=== PATIENT | female | born 1950 | race Caucasian/White ===

== ENCOUNTER 2017-09-22 08:50 | Day surgery (SDC) | payer MEDICARE, OTHER, SELFPAY ==
[2017-09-22] VITALS (8 sets, daily range): BP systolic 110–139; BP diastolic 75–93; PULSE 70–81; RESP 16; TEMP 36.7–37.3; O2SAT 92–95; BMI 36.0
[2017-09-22 09:18] LABS: Hematocrit 43.2 % (37-47); Hemoglobin 14.4 g/dl (12.0-15.0); Mean Corp Hgb Conc 33.3 g/gl (32-36); Mean Corpuscular Hgb 28.8 pg (27.0-32.0); Mean Corpuscular Volume 86.4 fL (81-99); Mean Platelet Vol. 10.8 fl (6.2-12.0); Platelet Count 258 K/mm3 (150-450); RBC Distribution Width CV 13.6 % (11.6-14.6); RBC Distribution Width SD 41.9 fl (35.1-43.9); White Blood Count 11.8 K/mm3 (4.4-11.0)
[2017-09-22 09:19] LABS: Scan Indicated on CBC? Y/N NO
[2017-09-22 09:42] LABS: Bedside Glucose 168 mg/dL (70-110)
--- NOTE | 2017-09-22 10:52 | DCINST_ITS ---
Discharge Diet: No Restrictions Discharge Activity: Return to Normal Activity, May Shower, May Take a Tub Bath - in 2 weeks. May shower in (days): 1 May resume sexual activity in: 2 weeks Call your doctor if your incision/area has: Sudden Increased Bleeding Call your doctor if you observe: Fever of 101 or Higher, Using more than one pad per hour - for 2 hrs in a row Allergies/Adverse Reactions: Allergies atorvastatin [From Lipitor] Adverse Reaction (Verified 09/01/17 13:58) MUSCLE CRAMPS codeine Adverse Reaction (Verified 09/01/17 13:58) Unknown tramadol [From Ultram] Adverse Reaction (Verified 09/01/17 13:58) Unknown Medications to take at Discharge Cholecalciferol (Vitamin D3) [Vitamin D3] 6,000 unit PO DAILY 09/01/17 Cinnamon Bark [Cinnamon] 2,000 mg PO DAILY 09/01/17 Dm Hb/Pseudoephed/Acetamin/Cp [[place] Plus-D Sinus-Cold] 1 each PO PRN PRN 09/01/17 Esomeprazole Mag Trihydrate [Nexium] 40 mg PO DAILY 09/01/17 Gabapentin [Gralise] 600 mg PO QHS 09/01/17 Hydrochlorothiazide [Hctz] 25 mg PO DAILY 09/01/17 Levothyroxine Sodium 125 mcg PO DAILY 09/01/17 Metformin HCl [Glucophage] 500 mg PO DAILY 09/01/17 [place]-3/Dha/Epa/Fish Oil [[place] 3 500 Softgel] 1 each PO LUNCH 09/01/17 Potassium Chloride [K-Tab ER] 20 meq PO DAILY 09/01/17 Pravastatin Sodium 20 mg PO QHS 09/01/17 Ibuprofen [Motrin] 600 mg PO Q8 PRN #20 tab 09/22/17 The following prescriptions were given: Ibuprofen [Motrin] 600 mg PO Q8 PRN #20 tab PRN Reason: Pain Primary Care Physician: Roseanna Frederick MD [Primary Care Provider] - Please Follow Up With: Rose Marie Kay MD - [phone] When: as needed. With Dr. Rodas's office, call for appointment
--- NOTE | 2017-09-22 10:56 | OP.PCM_ITS ---
Report of Operation Date of Procedure: 09/22/17 Pre-Operative Diagnosis: PMB and thickened endometrium Post-Operative Diagnosis: same Surgery/Procedure Performed:: Exam under anesthesia, attempted dilation of cervix Description of Surgical Findings:: stenotic flush cervix motion picture photographer: Eddie Morfin student Type of Anesthesia:: MAC/Supplemental/Local Special Medications: 1% lidocaine locally Specimen's removed: none Drains: none Estimated Blood Loss (mL): 10cc Fluids Replaced: 600ccLR Description of Procedure: The patient was taken to the operating room where she was prepped and draped in normal sterile fashion in dorsal lithotomy position. Her cervix was high and flushed with the vagina but a dimple could be palpated. The anterior lip was grasped with a single-tooth tenaculum and I attempted to dilate it. Several radiographs with the tenaculum to get a better angle were made. When I was finally able to penetrate the external cervical loss there was no significant resistance. This was done with a small dilator. I then attempted to reposition the dilator and see if I could enter the endometrial cavity but I went through the same defect. This was in the midline posterior uterus or cervix. Cervix was observed and there is no active bleeding. The instruments removed from the vagina. The vaginal sweep was completed by me. Sponge and needle counts were correct. The patient was taken the recovery room. I will refer her to a hysteroscopic specialist for further evaluation. Grafts/Implants Used: none - Complications none - Admit VTE Documentation VTE Present on Admission: No VTE Mechan Device Prophylaxis: SCD's VTE Pharm Prophylaxis ordered?: No Reason prophylaxis not ordered:: Procedure Not Indicated
== END 2017-09-22 12:13 | disposition home or self-care (01) ==
LOC: SDC 08:52 → AC 08:54
PROVIDERS: Anesthesiology; Family Provider Internal Medicine; PCP Internal Medicine; Visit Provider Obstetrics & Gynecology
PROC: 0UDB8ZZ Extraction of Endometrium, Via Natural or Artificial Opening Endoscopic (ICD-10-PCS; CPT 58558; principal; 2017-09-22 10:10)
DX: N95.0 Postmenopausal bleeding (principal); R93.8 Abnormal findings on diagnostic imaging of other specified body structures; E11.9 Type 2 diabetes mellitus without complications; I10 Essential (primary) hypertension; E78.00 Pure hypercholesterolemia, unspecified; E03.9 Hypothyroidism, unspecified; E55.9 Vitamin D deficiency, unspecified; K21.9 Gastro-esophageal reflux disease without esophagitis; Z78.0 Asymptomatic menopausal state; E66.9 Obesity, unspecified; Z68.36 Body mass index [BMI] 36.0-36.9, adult; Z79.84 Long term (current) use of oral hypoglycemic drugs; Z79.899 Other long term (current) drug therapy
CPT/HCPCS: 00952; 58558; 36415; 82962; 85027; J7120; J2405

== ENCOUNTER 2017-12-10 00:44 | Emergency (ER) | payer MEDICARE, OTHER, SELFPAY ==
--- NOTE | 2017-12-10 00:02 | CT_ITS ---
STUDY: CT BRAIN WITHOUT CONTRAST REASON FOR EXAM: Female, 67 years old. Headache. Left frontal and orbital pain. No known injury. RADIATION DOSAGE (If Supplied By Facility): CTDIvol = ( 44.99 ) mGy, DLP = ( 745.49 ) mGycm TECHNIQUE: Transaxial CT imaging of the brain was performed without administration of intravenous contrast material. Individualized dose optimization techniques were used for this CT. COMPARISON: None. FINDINGS: Normal soft tissue structures. Normal calvarium. Normal size ventricles and extra-axial spaces for the patient's age. Normal white matter tracts of the cerebral hemispheres. Normal basal ganglia and thalami. Normal brainstem. Normal cerebellum. There is no intracranial hemorrhage. There are no findings of an acute ischemic infarction. Normal visualized paranasal sinuses. Left orbit is normal. CT/Brain/Head without Contrast IMPRESSION: Normal unenhanced CT scan of the brain. Electronically Signed: Jv Pike MD at 1:03 EDT , Service support ,
--- NOTE | 2017-12-10 01:15 | ED.DCSUM_ITS ---
- ER Visit Summary Date of Service: 12/10/17 Chief Complaint: [] Headache History of Present Illness: The patient is a 67 F pinning of headache since today at 3 PM. Came on suddenly continuous similar to prior. Worsened by light. Took some Tylenol Excedrin with good relief of symptoms. It is mild at this time. She has had remote migraines. Physical Examination: [] Vital signs reviewed General: Well-nourished well-developed Head: Normocephalic atraumatic Eyes: Pupils equal round and reactive to light extraocular movements intact ENT: TMs clear no hemotympanum no trauma Neck: Nontender full range of motion Cardiovascular: Regular rate rhythm no murmurs normal S1-S2 Respiratory: No distress clear to auscultation bilaterally chest nontender Abdomen: Soft nontender nondistended normal bowel sounds no masses Back: Nontender no CVA tenderness Extremities: Nontender active range of motion ?4 extremities no trauma Skin: Normal color no trauma Neuro alert oriented cranial nerves II through XII intact normal strength sensation reflexes Test Results: [] Emergency Department Course and Treatment: [] CT head obtained and negative. Given dose of Toradol. Resting comfortably would like to be discharged. I think this is reasonable and likely tension headache. Could be migraine. Will follow-up as an outpatient. Do not think she has had a subarachnoid hemorrhage Treatment Plan: [] Disposition: [] Impression: [] Left-sided frontal headache This note was generated with [employer] dictation software. It may contain incorrect words, spelling, and punctuation that were not noted in review of the chart prior to signing ED Disposition - Plan for ED Patient: Referrals: Roseanna Frederick MD [Primary Care Provider] -
== END 2017-12-10 01:50 | disposition home or self-care (01) ==
LOC: ED 00:49
PROVIDERS: Emergency Provider Emergency Medicine; Family Provider Internal Medicine; PCP Internal Medicine
DX: R51 Headache (principal); Z79.899 Other long term (current) drug therapy; Z79.84 Long term (current) use of oral hypoglycemic drugs; E11.9 Type 2 diabetes mellitus without complications; I10 Essential (primary) hypertension; E78.00 Pure hypercholesterolemia, unspecified; K21.9 Gastro-esophageal reflux disease without esophagitis
CPT/HCPCS: 70450; 96372; 99282

== ENCOUNTER 2019-07-20 22:33 | Observation (INO) | payer MEDICARE, OTHER, SELFPAY ==
[2017-09-22 09:15] VITALS: BMI 36.0
[2019-07-20 22:33] VITALS: BP 213/84; PULSE 79; RESP 18; TEMP 36.6; O2SAT 98; BMI 35.9
--- NOTE | 2019-07-20 23:10 | CT_ITS ---
HISTORY: TINGLING UPPER LIP AND CHIN X 1 DAY ON/OFF, HTN-CONTROLLED WITH MEDS EXAMINATION: CT Head or Brain W/O Contrast Injection TECHNIQUE: Multiple axial images were obtained of the head without intravenous contrast. A radiation dose optimization technique was used for this scan. IV Contrast dosage and agent: None. COMPARISON: 12/10/2017 FINDINGS: No significant change. Normal ventricles. No significant white matter disease. No intracranial mass, hemorrhage, or acute parenchymal abnormality. Posterior fossa structures are Hamzah. No suspicious extra-axial fluid collection. Hyperostosis frontalis interna. As visualized, mastoids and paranasal sinuses appear clear. CT/Brain/Head without Contrast IMPRESSION: Stable exam. Normal CT brain for age. Individualized dose optimization techniques were used for this CT. at [id number] Reported and signed by: Kush Atkins MD Electronically Signed: Kush Atkins, at 23:56 EST Tel , Service support ,
--- NOTE | 2019-07-20 23:10 | EKG12_ITS ---
Test Reason : DYSRYTHMIA Blood Pressure : / mmHG Vent. Rate : 073 BPM Atrial Rate : 073 BPM P-R Int : 166 ms QRS Dur : 090 ms QT Int : 408 ms P-R-T Axes : 066 064 044 degrees QTc Int : 449 ms Normal sinus rhythm Normal ECG Confirmed by GHULAM DELEON, CHANDRIKA ([id number]), art editor KIRK PONCE ([id number]) on 07/23/2019 11:40:29 AM Referred By: Pravin Adams Confirmed By:CHANDRIKA PARMAR MD
--- NOTE | 2019-07-20 23:10 | RAD_ITS ---
HISTORY: Facial paresthesia that started yesterday EXAMINATION/TECHNIQUE: XR Chest 1 View: Portable COMPARISON: None FINDINGS: Mild elevation of the right hemidiaphragm compatible with chronic change. Shallow inspiration. Normal heart size. No vascular congestion, pleural effusion, or pulmonary infiltration. No pneumothorax. The bony thorax appears intact. RAD/Chest 1 View IMPRESSION: No acute cardiopulmonary disease. at 0029 Reported and signed by: Kush Atkins MD Electronically Signed: Kush Atkins, at 0:28 EST Tel , Service support ,
--- NOTE | 2019-07-20 23:12 | ED.DCSUM_ITS ---
History of Present Illness Chief Complaint: Numb/Ting Informant: Patient Onset: Yesterday Context: Sudden Onset - relatively, while sitting and watching TV Quality and Location: Left Face Parasthesia - around mouth, more on left Onset: see above Current Severity: Mild Maximum Severity: Mild Worsened by: nothing Relieved by: nothing Associated Symptoms: Negative for: Headache, Nausea, Vomiting, Chest Pain Narrative: States her face feels flushed and hot on both sides. No other focal neurologic symptoms. No symptoms in her extremities, trouble speaking or understanding others, or trouble ambulating. No chest discomfort or headache. No malaise or fevers. States she recently got over an earache, which was treated as an infection with antibiotics and that is better now, and recently had homeopathic medication injections into both knees, 1 of them was 2 days ago and the other was 4 days ago, a medication called Traumeel. She checked her blood pressure this evening and it was 118 systolic. She often has elevated pressures when going to the doctor's office. She is on antihypertensives losartan and HCTZ, and states she has been compliant with her medications and had no recent changes or additions/deletions. - Past Medical History (1) HTN (hypertension) Status: Chronic (2) Arthritis Status: Chronic (3) Diabetes mellitus, type 2 Status: Chronic Past Medical History - Allergies and Home Meds Allergies/Adverse Reactions: Allergies amoxicillin [From Augmentin] Adverse Reaction (Verified 07/21/19 03:03) Other atorvastatin [From Lipitor] Adverse Reaction (Verified 07/20/19 22:35) MUSCLE CRAMPS clavulanic acid [From Augmentin] Adverse Reaction (Verified 07/21/19 03:03) Other codeine Adverse Reaction (Verified 07/20/19 22:35) Unknown tramadol [From Ultram] Adverse Reaction (Verified 07/20/19 22:35) Unknown Past Medical History: - - no antiplatelet or anticoagulant medications Lives: Alone Smoking Status: Never smoker Drugs: None - Family History Maternal Family History: Reports: Diabetes, Heart Disease Paternal Family History: Reports: - - Her from motor vehicle accident 44 years. She does not know her paternal medical history. Review of Systems General: Denies: Chills, Fever, Sweats Eyes: Denies: Visual changes - bilaterally, Diplopia ENT: Denies: Rhinorrhea, Sore throat Cardiovascular: Denies: Chest pain, Palpitations Respiratory: Denies: Dyspnea, Cough, Dyspnea on exertion Gastrointestinal: Denies: Abdominal pain, Nausea, Vomiting, Diarrhea, Melena, Hematochezia Genitourinary: Denies: Dysuria, Hematuria, Frequency Musculoskeletal: Reports: Extremity Pain - both knees, left worse; nonacute. D enies: Neck pain, Back pain, Swelling Skin: Denies: Rash, Abscess, Wounds Neurological: Reports: Parasthesia - tingling. Denies: Headache, Weakness STROKE Vital Signs/Narrative: Vital Signs Temp Pulse Resp BP Pulse Ox 07/20/19 22:33 97.9 F 79 18 213/84 H 98 Inital Vital Signs reviewed: Yes - NIHSS Initial 1a Level of Consciousness: 0 1b LOC Questions (Score 2 if aphasic/stupor): 0 1c LOC Commands (Only score 1st attempt): 0 2 Best Gaze (If aphasic, use reflexive mvmts.): 0 3 Visual: 0 4 Facial Palsy: 0 5 Motor Arm Right (UN = amputation/fusion): 0 5 Motor Arm Left: 0 6 Motor Leg Right: 0 6 Motor Leg Left: 0 7 Limb ataxia (Only + if out of proportion): 0 8 Sensory (Aphasia/stupor=0 or 1, coma=2): 1 9 Best Language: 0 10 Dysarthria (mute, coma=2, intubated=UN): 0 11 Extinction and Inattention (only scored if +): 0 Total Score: 1 General: Well nourished, Well developed Head: Normocephalic, Atraumatic Eyes: Perrl, EOMI ENT: Moist mucous membranes, No rhinorrhea Neck: Supple, Nontender, No lymphadenopathy, - - no carotid bruits Cardiovascular: Regular rate, Regular rhythm, No murmurs, Normal S1, Normal S2. Negative for: Tachycardia Respiratory: No distress, CTA bilaterally, Chest nontender Abdomen: Soft, Nontender, Nondistended, Normal bowel sounds Back: Nontender, Normal Inspection. Negative for: CVA tenderness Extremities: Nontender, No edema. Negative for: Calf Tenderness Skin: Normal color, No rash, No Trauma Neurological: Alert, Oriented x3, Cranial nerves II-XII grossly intact, Normal Strength, Normal DTR, Normal Gait, Parasthesia - left perioral only. Negative for: Left side facial droop, Right side facial droop Psychological: Normal affect, Normal Mood Diagnostic/Tx/Re-eval Impressions Brain CT 07/20/19 23:10 IMPRESSION: Stable exam. Normal CT brain for age. Individualized dose optimization techniques were used for this CT. at 2357 Reported and signed by: Kush Atkins MD Electronically Signed: Kush Atkins, at 23:56 EST Tel , Service support , Chest X-Ray 07/20/19 23:10 IMPRESSION: No acute cardiopulmonary disease. at 0029 Reported and signed by: Kush Atkins MD Electronically Signed: Kush Atkins, at 0:28 EST Tel , Service support , 07/20/19 23:10 Brain/Head without Contrast [CT] Stat Chest 1 View [RAD] Stat Laboratory Results 07/20/19 07/20/19 07/20/19 23:10 23:10 23:10 WBC 11.3 H RBC 4.77 Hgb 13.4 Hct 40.9 MCV 85.7 MCH 28.1 MCHC 32.8 RDW Std Deviation 41.9 RDW Coeff of [place] 13.4 Plt Count 258 MPV 10.2 Immature Gran % (Auto) 0.300 Neut % (Auto) 55.5 Lymph % (Auto) 34.0 [place] % (Auto) 7.1 Eos % (Auto) 2.5 Baso % (Auto) 0.6 Absolute Neuts (auto) 6.3 Absolute Lymphs (auto) 3.84 Nucleated RBC % 0 PT 12.6 INR 1.0 APTT 36.1 Sodium 139 Potassium 3.5 Chloride 103 Carbon Dioxide 29.0 Anion Gap 7 BUN 10 Creatinine 0.74 Estim Creat Clear Calc 41.40 Est GFR (MDRD) Af Amer 99 Est GFR (MDRD) Non-Af 82 BUN/Creatinine Ratio 13.5 Glucose 127 H Calcium 9.4 Troponin I < 0.015 - Rhythm Strip Rhythm Strip: Sinus Rhythm Rate: 75 Ectopy: None - EKG Initial EKG Interpretation: Sinus Rhythm, No Acute Injury Pattern - normal EKG - Medical Decision Making Stroke Team Activated: No - due to timing IV Alteplase (t-PA) Administered: No - due to timing Work-up is unremarkable the patient's blood pressure continues to be severely elevated in the 180-190 range. My concern is that she has had a small stroke. She is outside of the window for any intervention or IV TPA due to timing, but her symptoms are persistent and with her high blood pressures, certainly small stroke is possible although this is an unusual pattern. She needs an MRI. If she has an MRI in the morning, that is negative she can probably be discharged home without an emergent neurology consultation. The plan is for admission for that purpose and further monitoring. ED Disposition - Plan for ED Patient: Disposition: Acute Care Hospital [facility] Diagnosis: Numbness and tingling of left side of face
[2019-07-20 23:29] LABS: Absolute Lymphocyte Count 3.84 X10^3/uL (0.83-4.51); Absolute Neutrophil Count 6.3 X10^3/uL (2.0-7.7); Basophil# 0.07 X10^3/uL; Basophil% 0.6 % (0-1); Eosinophil# 0.28 X10^3/uL; Eosinophils% 2.5 % (0-5); Hematocrit 40.9 % (37-47); Hemoglobin 13.4 g/dL (12.0-15.0); Lymphocyte # 3.84 X10^3/ul (4.0); Mean Corp Hgb Conc 32.8 g/dL (32-36); Mean Corpuscular Hgb 28.1 pg (27.0-32.0); Mean Corpuscular Volume 85.7 fL (81-99); Mean Platelet Vol. 10.2 fl (6.2-12.0); Monocyte% 7.1 % (0-10); NRBC Flagged by Analyzer 0 % (0-5); Neutrophil # 6.28 X10^3/uL (2.7-7.7); Neutrophil % 55.5 % (47-70); Platelet Count 258 K/mm3 (150-450); RBC Distribution Width CV 13.4 % (11.6-14.6); RBC Distribution Width SD 41.9 fl (35.1-43.9); Red Blood Count 4.77 M/mm3 (4.2-5.4); White Blood Count 11.3 K/mm3 (4.4-11.0)
[2019-07-20 23:40] VITALS: BP 183/82; PULSE 81; RESP 16
[2019-07-20 23:46] LABS: Anion Gap 7 (5-15); BUN 10 mg/dL (7-18); BUN/Creat Ratio 13.5 RATIO (10-20); Calcium,Total 9.4 mg/dL (8.5-10.1); Chloride 103 mmol/L (98-107); Creatinine, Serum 0.74 mg/dL (0.55-1.02); EST Glomerular Filtration Rate 82 mL/min (>60); Est Glom Filt Rate - Afr Amer 99 mL/min (>60); Glucose 127 mg/dL (74-106); Potassium 3.5 mmol/L (3.5-5.1); Sodium Level 139 mmol/L (136-145)
[2019-07-20 23:47] LABS: Prothrombin Time (Protime)PT. 12.6 SECONDS (11.7-14.9)
[2019-07-20 23:49] LABS: Partial Thromboplast Time 36.1 Seconds (24.1-36.2)
[2019-07-21] VITALS (10 sets, daily range): BP systolic 141–192; BP diastolic 71–83; PULSE 77–96; RESP 16–17; TEMP 36.6–36.9; O2SAT 95–97; BMI 35.7; BMI 35.8
--- NOTE | 2019-07-21 03:20 | NURSING ---
Patient reports tingling to left upper lip and left chin.
--- NOTE | 2019-07-21 03:23 | PCM.HP.STD ---
Problem List (1) Tingling of face Status: Acute (2) HTN (hypertension) Status: Chronic (3) Arthritis Status: Chronic (4) Diabetes mellitus, type 2 Status: Chronic History of Present Illness Date of Admission: 07/21/19 Chief Complaint: Tingling sensation The patient is a 68 year old F with a significant history of hypertension; diabetes and arthritis who presented to emergency department with a tingling sensation around her mouth. Her Symptoms started about 5 and half hours prior to presentation. Also her tingling sensation goes down to her chin. She denies any change in speech or any focal weakness. Past Medical History Past Medical History (Chronic Problems): Chronic Problems HTN (hypertension) (Chronic) Arthritis (Chronic) Diabetes mellitus, type 2 (Chronic) Allergies amoxicillin [From Augmentin] Adverse Reaction (Verified 07/21/19 03:03) Other atorvastatin [From Lipitor] Adverse Reaction (Verified 07/20/19 22:35) MUSCLE CRAMPS clavulanic acid [From Augmentin] Adverse Reaction (Verified 07/21/19 03:03) Other codeine Adverse Reaction (Verified 07/20/19 22:35) Unknown tramadol [From Ultram] Adverse Reaction (Verified 07/20/19 22:35) Unknown Home Medications: Ambulatory Orders Medication Instructions Recorded Cholecalciferol (Vitamin D3) 4,000 unit PO DINNER 09/01/17 [Vitamin D3] Cinnamon Bark [Cinnamon] 2,000 mg PO DINNER 09/01/17 Esomeprazole Mag Trihydrate 40 mg PO DAILY 09/01/17 [Nexium] Hydrochlorothiazide [Hctz] 12.5 mg PO DAILY 09/01/17 Levothyroxine Sodium 125 mcg PO DAILY 09/01/17 Metformin HCl [Glucophage] 1,000 mg PO DAILY 09/01/17 [place]-3/Dha/Epa/Fish Oil [[place] 3 2 each PO DINNER 09/01/17 500 Softgel] Potassium Chloride [K-Tab ER] 20 meq PO DAILY 09/01/17 Pravastatin Sodium 20 mg PO QHS 09/01/17 Ibuprofen [Motrin] 600 mg PO Q8 07/20/19 Tobramycin/Lotepred Etab [Zylet 1 drp LEFT EYE TID 07/20/19 Eye Drops] Carboxymethylcellulos/Glycerin 2 drp EACH EYE 4X/DAY 07/21/19 [Refresh Optive Eye Drops] Surgical History: cataract, hysterectomy - Complete hysterectomy for endometrial cancer, - - Foot surgery Lives: Alone Smoking Status: Never smoker Drugs: None - *Family History Maternal History Items: Diabetes, Heart Disease Paternal History Items: - - Her from motor vehicle accident 44 years. She does not know her paternal medical history. Review of Systems Constitutional: Denies: Chills, Fever, Weight Change HEENT: Denies: Head Aches, Sinus Congestion, Sinus Drainage Cardiovascular: Denies: Chest Pain, Palpitations Respiratory: Denies: Cough, Shortness of breath at rest, Sputum production Gastrointestinal: Denies: Abdominal Pain, Nausea, Vomiting Genitourinary: Denies: Dysuria Musculoskeletal: Denies: Joint Pain, Joint Tenderness Skin: Denies: Rash, Wounds Neurological: Reports: Tingling. Denies: Focal weakness Psychiatric: Denies: Anxiety, Depression, Homicidal Ideations, Suicidal Ideations Hematologic/ Lymphatic: Denies: Easy Bruising, Easy Bleeding VTE Information - Inpt Only VTE Present on Admission: No VTE Mechan Device Prophylaxis: None VTE Pharm Prophylaxis ordered?: Yes Patient Problems: Active and Suspected Problems Numbness and tingling of left side of face (Acute) Tingling of face (Acute) - Physical Exam Vitals/I&O's: Vital Signs Temp Pulse Resp BP Pulse Ox 98.4 F 77 16 166/76 H 97 07/21/19 02:46 07/21/19 02:46 07/21/19 02:46 07/21/19 02:47 07/21/19 02:46 Oxygen Delivery Method Room Air Weight: 88.7 kg Body Mass Index (BMI) 35.7 General: Alert, Oriented x3, Cooperative HEENT: Atraumatic, PERRLA, EOMI, Normocephalic Neck: Supple, No JVD, Negative Carotid Bruits Lungs: Clear to auscultation, Normal air movement Cardiovascular: Regular rate, No murmurs Abdomen: Bowel Sounds Present, Soft, Non Tender Extremities: No edema, Capillary Refill Less than 3 Seconds Skin: No rashes, No breakdown Musculoskeletal: No Tenderness to Palpation of Joints or Extremities Neurological: Cranial nerves II-XII grossly intact, Deep Tendon Reflexes 2+/4 and Symmetrical, Muscle tone normal, Coordination normal Psych/Mental Status: Normal Affect, Appropriate Laboratory Results 07/20/19 23:10: WBC 11.3 H, RBC 4.77, Hgb 13.4, Hct 40.9, MCV 85.7, MCH 28.1, MCHC 32.8, RDW Std Deviation 41.9, RDW Coeff of [place] 13.4, Plt Count 258, MPV 10.2, Immature Gran % (Auto) 0.300, Neut % (Auto) 55.5, Lymph % (Auto) 34.0, [place] % (Auto) 7.1, Eos % (Auto) 2.5, Baso % (Auto) 0.6, Absolute Neuts (auto) 6.3, Absolute Lymphs (auto) 3.84, Nucleated RBC % 0 07/20/19 23:10: PT 12.6, INR 1.0, APTT 36.1 07/20/19 23:10: Sodium 139, Potassium 3.5, Chloride 103, Carbon Dioxide 29.0, Anion Gap 7, BUN 10, Creatinine 0.74, Estim Creat Clear Calc 41.40, Est GFR (MDRD) Af Amer 99, Est GFR (MDRD) Non-Af 82, BUN/Creatinine Ratio 13.5, Glucose 127 H, Calcium 9.4, Troponin I < 0.015 Current Medications Sodium Chloride () 250 mls @ 15 mls/hr IV .[id number] PRN PRN Reason: Saline Flush Sodium Chloride () 10 - 40 ml IV UD PRN PRN Reason: SALINE FLUSH Assessment/Plan All Active Problems Numbness and tingling of left side of face (Acute) Tingling of face (Acute) The patient is a 68 year old F with a significant history of hypertension; diabetes and arthritis who presented to emergency department with manisha-oral tingling that goes down to her chin and found to have severely elevated blood pressure consistent with likely TIA/stroke. TIA/stroke CT of the head was unremarkable. -Check Lipid level Physical therapy and occupational therapy evaluation. N.p.o. until bedside swallow eval. Daily aspirin. Patient is allergic to atorvastatin. She takes pravastatin at home. We will continue patient on pravastatin. -Blood glucose was in the normal range on presentation. Permissive hypertension. Control blood pressure with labetalol for systolic blood pressure of more than 220 or diastolic blood pressure of more than 120. MRI/MRA of head; brain; and neck. Echocardiogram ordered. Hypertension On presentation her blood pressure was severely elevated. Permissive hypertension as above. Hold home hydrochlorothiazide. Diabetes mellitus On presentation her blood glucose was within goal. Will discontinue metformin since it is too early in her admission. Accu-Chek QA [facility] with correction scale insulin ordered. Hypokalemia On presentation her potassium was low normal at 3.5. On home potassium supplementation 20 mEq daily; not ordered since home hydrochlorothiazide has been held at this time. Potassium chloride 40 mg x 1 ordered. Hypothyroidism Synthroid continued DVT prophylaxis Subcutaneous Lovenox Code Visit OBSV E&M: 31611 Initial observation care L3
--- NOTE | 2019-07-21 03:27 | ECHOD_ITS ---
Version 2 Reason For Study: TIA/CVA Procedure This was a 2D Doppler, Color Flow transthoracic echocardiogram. Exam performed portable in patient room. Left Ventricle Normal LV size. Left ventricular systolic function is normal. The estimated ejection fraction is 65 %. Stage 1 diastolic dysfunction. No regional wall motion abnormalities noted. Right Ventricle Normal RV size. Normal systolic function. Atria Normal left atrium. Normal right atrium. Bubble contrast study negative for right to left interatrial shunt. Mitral Valve Normal mitral valve. Tricuspid Valve Normal tricuspid valve. Mild (1+) tricuspid valve insufficiency. Pulmonary artery systolic pressure is 37 mmHg. Aortic Valve Normal aortic valve. Trisinus/trileaflet aortic valve. Pulmonic Valve Normal pulmonic valve. Great Vessels Normal aortic root. The pulmonary artery is normal size. Normal inferior vena cava. Pericardium/Pleural No pericardial effusion. Medication Performed a rapid injection of agitated mix of 9 cc saline and 1cc air to assess for atrial septal defect. MMode/2D Measurements & Calculations LVIDd: 4.0 cm IVSd: 1.4 cm Ao root diam: 2.5 cm LVIDs: 2.3 cm LVPWd: 0.91 cm RVDd: 2.5 cm FS: 43.2 % LAV(MOD-bp): 16.8 ml LA A4 area: 7.6 cm2 LA dimension(2D): 3.3 cm LAV(MOD-bp) Indexed: 8.9 ml/m2 LAV(MOD-sp2): 25.5 ml LAV(MOD-sp4): 11.3 ml RA A4 area: 11.0 cm2 Doppler Measurements & Calculations MV E max trey: 66.4 cm/sec Lat Peak E' Trey: 6.0 cm/sec Med Peak E' Trey: 5.6 cm/sec MV A max trey: 89.3 cm/sec E/E' lat: 11.1 E/E' med: 12.0 MV E/A: 0.74 Ao V2 max: 155.8 cm/sec LV V1 max: 134.9 cm/sec PA V2 max: 90.6 cm/sec Ao max P.7 mmHg LV V1 max P.3 mmHg Ao V2 mean: 113.9 cm/sec Ao mean P.6 mmHg Ao V2 VTI: 33.6 cm TR max trey: 287.5 cm/sec TR max P.1 mmHg Interpretation Summary Normal LV size. Left ventricular systolic function is normal. The estimated ejection fraction is 65 %. Stage 1 diastolic dysfunction. Pulmonary artery systolic pressure is 37 mmHg. Bubble contrast study negative for right to left interatrial shunt. Ordering Physician: Pravin Adams Referring Physician: Roseanna Frederick Performed By: Sagrario Gómez, LAILA, RVT
--- NOTE | 2019-07-21 03:27 | MRI_ITS ---
STUDY: MRA NECK WITH AND WITHOUT CONTRAST REASON FOR EXAM: Female, 68 years old. Tingling in mouth and chin since yesterday. TECHNIQUE: 3-D lnvj-lg-lxxkvk (TOF) imaging was performed in an 1.5 T MRI scanner. IV Dotarem 18 was administered for the contrast enhanced images. COMPARISON: None. FINDINGS: RIGHT CAROTID ARTERIES: Normal right common carotid artery (CCA). Mild stenosis at the origin of the right internal carotid bulb. Widely patent right proximal internal carotid artery. Normal visualized cervical portion of the right internal carotid artery. Normal origin of the right external carotid artery (ECA). LEFT CAROTID ARTERIES: Normal left common carotid artery (CCA). Normal left internal carotid bulb. Normal origin of the left internal carotid (ICA) artery without a hemodynamically significant stenosis. Normal visualized cervical portion of the left internal carotid artery. Normal origin of the left external carotid artery (ECA). VERTEBRAL ARTERIES: Normal antegrade flow within the bilateral vertebral artery without a hemodynamically significant stenosis. They are codominant. AORTIC ARCH: Widely patent aortic arch and origins of the great vessels. MRI/MRA Neck WITH and W/O Contrast IMPRESSION: 1. Less than 20% stenosis of the origin of the right internal carotid artery bulb. The remainder of the right internal carotid artery is widely patent. 2. Widely patent bilateral common carotid arteries, left common carotid bifurcation, left internal and external carotid arteries. 3. Widely patent aortic arch and origins of the great vessels. 4. Widely patent bilateral codominant vertebral arteries. Electronically Signed: Trung Mascorro MD at 13:27 EST , Service support ,
--- NOTE | 2019-07-21 03:27 | MRI_ITS ---
STUDY: MRA OF THE HEAD WITHOUT CONTRAST REASON FOR EXAM: Female, 68 years old. Tingling in mouth and chin since yesterday. TECHNIQUE: 3-D wegi-nk-bxyeqz (TOF) imaging was performed with MIPs. The study was performed unenhanced. COMPARISON: None. FINDINGS: Normal bilateral petrous carotid arteries. Normal right cavernous carotid artery with a normal supraclinoid bifurcation. Normal left cavernous carotid artery with a normal supraclinoid bifurcation. Normal right A1 segment of the anterior cerebral artery. Normal left A1 segment of the anterior cerebral artery. Normal intact anterior communicating artery (ACOM). Normal bilateral A2 segments of the anterior cerebral arteries. Normal right M1 and M2 segments of the middle cerebral arteries, with a normal M1 bifurcation. Normal left M1 and M2 segments of the middle cerebral arteries, with a normal M1 bifurcation. No visible right posterior communicating artery (PCOM). Normal left posterior communicating artery (PCOM). Normal bilateral vertebral arteries. Mild tapered narrowing in the distal half of the basilar artery with a normal basilar bifurcation. The visualized bilateral superior cerebellar (SCA) arteries are normal. Normal bilateral P1, P2 and visualized P3 segments of the posterior cerebral arteries. There is no demonstrated aneurysm of the [place]. There is no major vessel occlusion or hemodynamically significant stenosis. MRI/MRA Head ONLY without Contrast IMPRESSION: 1. Mild tapered narrowing in the distal half of the basilar artery. 2. No significant vaso-occlusive disease of the anterior and posterior intracranial circulation. Electronically Signed: Trung Mascorro MD at 13:21 EST , Service support ,
--- NOTE | 2019-07-21 03:27 | MRI_ITS ---
STUDY: MRI BRAIN WITHOUT CONTRAST REASON FOR EXAM: Female, 68 years old. Tingling in mouth and chin since yesterday. TECHNIQUE: Standardized multiplanar fat and water weighted pulse sequences were obtained. COMPARISON: CT head without contrast 07/20/2019. FINDINGS: No restricted diffusion to suspect acute or subacute ischemic infarct. No midline shift and no mass effects. Normal size of the ventricles and extra-axial spaces for the patient's age. Normal white matter tracts of the supratentorial brain. Prominent perivascular space in the region of the left anterior commissure. Normal bilateral basal ganglia. Normal thalami. There is no extra-axial fluid accumulation. Normal flow voids within the major intracranial circulation suggesting patency by spin echo criteria. Normal sella turcica, pituitary gland, infundibular stalk, optic chiasm and hypothalamus. Normal tectal plate and pineal gland. Normal midbrain, trice and medulla. Normal cerebellum. Normal basal cisterns. Normal bilateral temporal bones. Normal bilateral internal auditory canals. No demonstrated orbital abnormality, within the constraints of a routine brain study. Normal visualized paranasal sinuses. Normal calvarium and skull base. Normal visualized soft tissue structures. Normal visualized upper cervical spine. MRI/Brain without Contrast IMPRESSION: Normal unenhanced MRI of the brain. Electronically Signed: Trung Mascorro MD at 13:23 EST , Service support ,
[2019-07-21] MEDS: Levothyroxine 125 MCG Tablet PO (06:32)
[2019-07-21] MEDS: Ibuprofen 600 MG Tablet PO (06:33)
[2019-07-21] MEDS: Insulin Lispro 100 UNIT/ML INSULN.PEN SC ×2 (06:45→11:53)
[2019-07-21 06:46] LABS: Cholesterol 192 mg/dL (200); High Density Lipoprotein 37 mg/dL; Triglycerides 176 mg/dL; Very Low Density Lipoprotein 35 mg/dL (5-40)
[2019-07-21 06:56] LABS: Bedside Glucose 152 mg/dL (70-110)
[2019-07-21] MEDS: Aspirin 81 MG TAB.CHEW PO (09:32)
[2019-07-21] MEDS: Pantoprazole Sodium 40 MG Tablet PO (09:32)
[2019-07-21] MEDS: Enoxaparin 40 MG/0.4 ML Syringe SC (09:32)
[2019-07-21 12:01] LABS: Bedside Glucose 154 mg/dL (70-110)
--- NOTE | 2019-07-21 13:38 | PCM.DC ---
- Discharge Diagnoses Current Active Problems: Current Active and Chronic Problems Numbness and tingling of left side of face (Acute) Tingling of face (Acute) You will use the following diet at home:: Cardiac Your food should be the consistency of: Regular Your liquids should be the consistency of: Regular/Thin Discharge Activity: Return to Normal Activity Weight Bearing Status: Weight bearing as tolerated Call your doctor if you observe: Numbness or Tingling, Shortness of breath, Dizziness Instructions: What Is a TIA?, Transient Ischemic Attack (TIA) Additional Instructions: to have 30 day event monitor set up on Tuesday07/23/19 Allergies/Adverse Reactions: Allergies amoxicillin [From Augmentin] Adverse Reaction (Verified 07/21/19 03:03) Other atorvastatin [From Lipitor] Adverse Reaction (Verified 07/20/19 22:35) MUSCLE CRAMPS clavulanic acid [From Augmentin] Adverse Reaction (Verified 07/21/19 03:03) Other codeine Adverse Reaction (Verified 07/20/19 22:35) Unknown tramadol [From Ultram] Adverse Reaction (Verified 07/20/19 22:35) Unknown Medications to take at Discharge Cholecalciferol (Vitamin D3) [Vitamin D3] 4,000 unit PO DINNER 09/01/17 Cinnamon Bark [Cinnamon] 2,000 mg PO DINNER 09/01/17 Esomeprazole Mag Trihydrate [Nexium] 40 mg PO DAILY 09/01/17 Hydrochlorothiazide [Hctz] 12.5 mg PO DAILY 09/01/17 Levothyroxine Sodium 125 mcg PO DAILY 09/01/17 Metformin HCl [Glucophage] 1,000 mg PO DAILY 09/01/17 [place]-3/Dha/Epa/Fish Oil [[place] 3 500 Softgel] 2 each PO DINNER 09/01/17 Potassium Chloride [K-Tab ER] 20 meq PO DAILY 09/01/17 Pravastatin Sodium 20 mg PO QHS 09/01/17 Aspirin [Aspirin, Baby] 81 mg PO DAILY@0800 #30 tab.chew 07/21/19 Carboxymethylcellulos/Glycerin [Refresh Optive Eye Drops] 2 drp EACH EYE 4X/DAY 07/21/19 The following prescriptions were given: Aspirin [Aspirin, Baby] 81 mg PO DAILY@0800 #30 tab.chew Transmission Status: Sent to [id number] Orders to be completed after discharge: Cardiac Holter Monitor, Set[facility]Up [facility] Location: None Selected Primary Care Physician: Roseanna Frederick MD [Primary Care Provider] - Please follow up with your Primary Care Physician in: one week Test Results: Test results from this visit will be discussed in further detail at your follow-up appointment, if applicable. Proposed Discharge Date: 07/21/19
--- NOTE | 2019-07-21 13:39 | PCM.DC.SUM ---
Discharge Date and Diagnosis - Problem List Patient Problems: Active and Suspected Problems Numbness and tingling of left side of face (Acute) Tingling of face (Acute) Date of Admission: 07/21/19 Date of Discharge: 07/21/19 - Primary Discharge Diagnosis Active and Suspected Problems Numbness and tingling of left side of face (Acute) Tingling of face (Acute) - Secondary Discharge Diagnosis Chronic Problems HTN (hypertension) (Chronic) Arthritis (Chronic) Diabetes mellitus, type 2 (Chronic) Hospital Course and Treatment Imaging Results: Diagnostic Data Brain CT 07/20/19 23:10 IMPRESSION: Stable exam. Normal CT brain for age. Individualized dose optimization techniques were used for this CT. at 2357 Reported and signed by: Kush Atkins MD Electronically Signed: Kush Atkins, at 23:56 EST Tel , Service support , Chest X-Ray 07/20/19 23:10 IMPRESSION: No acute cardiopulmonary disease. at 0029 Reported and signed by: Kush Atkins MD Electronically Signed: Kush Atkins, at 0:28 EST Tel , Service support , Brain MRI 07/21/19 03:27 IMPRESSION: Normal unenhanced MRI of the brain. Electronically Signed: Trung Mascorro MD at 13:23 EST , Service support , Head MRA 07/21/19 03:27 IMPRESSION: 1. Mild tapered narrowing in the distal half of the basilar artery. 2. No significant vaso-occlusive disease of the anterior and posterior intracranial circulation. Electronically Signed: Trung Mascorro MD at 13:21 EST , Service support , Neck MRA 07/21/19 03:27 IMPRESSION: 1. Less than 20% stenosis of the origin of the right internal carotid artery bulb. The remainder of the right internal carotid artery is widely patent. 2. Widely patent bilateral common carotid arteries, left common carotid bifurcation, left internal and external carotid arteries. 3. Widely patent aortic arch and origins of the great vessels. 4. Widely patent bilateral codominant vertebral arteries. Electronically Signed: Trung Mascorro MD at 13:27 EST , Service support , Operations: None Procedures: 2-D Echocardiogram Summary of Care Provided: The patient is a 68 year old F with a past medical history significant for hypertension, diabetes and arthritis was admitted through the ED on 07/04/2019 with a complaint of tingling sensation around her mouth. Symptoms started about 5-1/2 hours prior to presentation she said the tingling sensation radiated down to her chin. She denied any lightheadedness or dizziness, blurred vision, mouth droop, slurred speech, or weakness in any extremity. She was admitted to be managed for TIA. CT of the head showed no acute ST changes. She was started on aspirin. 2D echo was ordered which showed normal left ventricle systolic function with EF of 65% in stage I diastolic dysfunction with no regional wall motion abnormalities. Bubble study was negative for tpovn-zk-sofo atrial shunt and RVSP was 37 mmHg. MRI of the brain showed a normal unenhanced brain and MRA of the head and neck showed mild tapered narrowing in the distal half of the basilar artery with no significant vaso-occlusive disease of the anterior and posterior intracranial circulation. Lipid panel was normal. A1c was ordered and was pending at time of discharge. Patient remained stable was discharged home on p.o. aspirin 81 mg daily. She was discharged with a 48-hour Holter monitor and is to come back on Tuesday, July 23, 2019 for a 30-day event monitor. 48-hour Holter monitor and 30-day event monitor readings are to be sent to Dr. Dickerson for interpretation. She was discharged home on 07/21/2019 and is follow-up with her primary care doctor within 1 week. Primary care doctor to refer patients to neurologist as needed. Patient seen and examined prior to discharge. She had no complaints and felt well. Review of systems otherwise negative. Labs and vitals reviewed. Home medication reviewed and reconciled. o/e: Vital Signs Height 5 ft 2 in Weight: 195 lb 8.8 oz Weight in Pounds 195.6 lbs Pulse Ox 97 Temperature 97.9 F Pulse Rate 83 Respiratory Rate 16 Blood Pressure [2nd BP] 166/83 Blood Pressure 164/73 Blood Pressure Position [2nd Semi-Fowlers BP] Blood Pressure Position Semi-Fowlers [] Patient Problems: Active and Suspected Problems Numbness and tingling of left side of face (Acute) Tingling of face (Acute) - Physical Exam Vitals/I&O's: Vital Signs Temp Pulse Resp BP Pulse Ox 97.9 F 83 16 164/73 H 97 07/21/19 11:46 07/21/19 11:46 07/21/19 11:46 07/21/19 11:46 07/21/19 11:46 Oxygen Delivery Method Room Air Weight: 195 lb 8.8 oz Body Mass Index (BMI) 35.7 Intake and Output for Last 24 Hours 07/19/19 07/20/19 07/21/19 23:59 23:59 23:59 Intake Total 720 / 720 Balance 720 / 720 General: Alert, Oriented x3, Cooperative HEENT: Atraumatic, PERRLA, EOMI, Normocephalic Oral: Moist Mucosa Neck: Supple, No JVD, Negative Carotid Bruits Lungs: Clear to auscultation, Normal air movement Cardiovascular: Regular rate, No murmurs Abdomen: Bowel Sounds Present, Soft, Non Tender Extremities: No edema, Capillary Refill Less than 3 Seconds Skin: No rashes, No breakdown Musculoskeletal: No Tenderness to Palpation of Joints or Extremities Neurological: Cranial nerves II-XII grossly intact Psych/Mental Status: Normal Affect, Appropriate, Alert and oriented to time, place, person, mood and affect Laboratory Results 07/20/19 23:10: WBC 11.3 H, RBC 4.77, Hgb 13.4, Hct 40.9, MCV 85.7, MCH 28.1, MCHC 32.8, RDW Std Deviation 41.9, RDW Coeff of [place] 13.4, Plt Count 258, MPV 10.2, Immature Gran % (Auto) 0.300, Neut % (Auto) 55.5, Lymph % (Auto) 34.0, [place] % (Auto) 7.1, Eos % (Auto) 2.5, Baso % (Auto) 0.6, Absolute Neuts (auto) 6.3, Absolute Lymphs (auto) 3.84, Nucleated RBC % 0 07/20/19 23:10: PT 12.6, INR 1.0, APTT 36.1 07/20/19 23:10: Sodium 139, Potassium 3.5, Chloride 103, Carbon Dioxide 29.0, Anion Gap 7, BUN 10, Creatinine 0.74, Estim Creat Clear Calc 41.40, Est GFR (MDRD) Af Amer 99, Est GFR (MDRD) Non-Af 82, BUN/Creatinine Ratio 13.5, Glucose 127 H, Calcium 9.4, Troponin I < 0.015 07/21/19 05:18: Triglycerides 176, Cholesterol 192, LDL Cholesterol 120, VLDL Cholesterol 35, HDL Cholesterol 37 L 07/21/19 06:42: POC Glucose 152 H 07/21/19 11:51: POC Glucose 154 H Current Medications Acetaminophen (Tylenol) 650 mg PO Q6H PRN PRN PRN Reason: Pain Score 1-10/Temp > 100.7 F Artificial Tears (Tears Naturale, Artificial Tears) 2 drop EACH EYE 4X/DAY [facility] Last Admin: 07/21/19 09:30 Dose: 2 drop Documented by: Aspirin (Aspirin, Baby) 81 mg PO DAILY@0800 [facility] Last Admin: 07/21/19 09:32 Dose: 81 mg Documented by: Cholecalciferol (Vitamin D) 4,000 unit PO DINNER [facility] Dextrose (D50w Syringe) 0 gm IV X1 PRN; Protocol PRN Reason: Hypoglycemia Enoxaparin Sodium (Lovenox) 40 mg SC DAILY [facility] Last Admin: 07/21/19 09:32 Dose: 40 mg Documented by: Glucagon () 1 mg IM .X1 PRN PRN Reason: Hypoglycemia Sodium Chloride () 250 mls @ 15 mls/hr IV .[id number] PRN PRN Reason: Saline Flush Ibuprofen (Motrin) 600 mg PO Q8 [facility] Last Admin: 07/21/19 06:33 Dose: 600 mg Documented by: Insulin Human Lispro (Humalog Kwikpen (Bkc)) 0 unit SC [facility]; Protocol Last Admin: 07/21/19 11:53 Dose: 1 u Documented by: Labetalol HCl (Trandate) 10 mg IV Q10M PRN PRN Reason: MAINTAIN BP < 220/120 Stop: 07/22/19 03:28 Levothyroxine Sodium (Synthroid) 125 mcg PO DAILY@0600 [facility] Last Admin: 07/21/19 06:32 Dose: 125 mcg Documented by: Non-Formulary Medication (Tobramycin/Lotepred Etab [Zylet Eye Drops]) 1 drp LEFT EYE TID [facility] Bzvvr-3-Rlva Ethyl Esters (Lovaza) 1 gm PO DINNER [facility] Ondansetron HCl (Zofran) 4 mg IV Q8H PRN PRN PRN Reason: NAUSEA/VOMITING Pantoprazole Sodium (Protonix) 40 mg PO DAILY [facility] Last Admin: 07/21/19 09:32 Dose: 40 mg Documented by: Pravastatin Sodium (Pravachol) 20 mg PO QHS [facility] Sodium Chloride () 10 - 40 ml IV UD PRN PRN Reason: SALINE FLUSH Discharge Diet: Low fat/ Low Cholesterol Discharge Activity: Return to Normal Activity Weight Bearing Status: Weight bearing as tolerated Call your doctor if you observe: Numbness or Tingling, Shortness of breath, Dizziness Home Medications: Medications to take at Discharge Cholecalciferol (Vitamin D3) [Vitamin D3] 4,000 unit PO DINNER 09/01/17 Cinnamon Bark [Cinnamon] 2,000 mg PO DINNER 09/01/17 Esomeprazole Mag Trihydrate [Nexium] 40 mg PO DAILY 09/01/17 Hydrochlorothiazide [Hctz] 12.5 mg PO DAILY 09/01/17 Levothyroxine Sodium 125 mcg PO DAILY 09/01/17 Metformin HCl [Glucophage] 1,000 mg PO DAILY 09/01/17 [place]-3/Dha/Epa/Fish Oil [[place] 3 500 Softgel] 2 each PO DINNER 09/01/17 Potassium Chloride [K-Tab ER] 20 meq PO DAILY 09/01/17 Pravastatin Sodium 20 mg PO QHS 09/01/17 Aspirin [Aspirin, Baby] 81 mg PO DAILY@0800 #30 tab.chew 07/21/19 Carboxymethylcellulos/Glycerin [Refresh Optive Eye Drops] 2 drp EACH EYE 4X/DAY 11/30/19 Following Prescrptions Were Given to Patient: Aspirin [Aspirin, Baby] 81 mg PO DAILY@0800 #30 tab.chew [facility] Other Amb Orders: Cardiac Holter Monitor, [facility] Location: None Selected Primary Care Physician: Roseanna Frederick MD [Primary Care Provider] - Please follow up with your Primary Care Physician in: one week Patient Instructions: What Is a TIA?, Transient Ischemic Attack (TIA) Additional Instructions: to have placement of 30 day event recorder on Tuesday07/23/19 Disposition: Home Minutes spent on discharge:: 35 Patient Condition:: Stable Medical Necessity - Tobacco Use Smoking Status: Never smoker Tobacco Use: Non-smoker Meaningful Use Info Meaningful Use Diagnoses (Choose all that apply): None applicable Code Visit OBSV E&M: 77322 Observation care discharge
[2019-07-21 14:12] LABS: Hemoglobin A1c 6.9 % (4.2-6.3)
== END 2019-07-21 13:39 | disposition home or self-care (01) ==
LOC: ED 07-21 02:08 → PCU 07-21 03:33
PROVIDERS: Admitting Provider Hospitalist; Emergency Provider Emergency Medicine; Family Provider Internal Medicine; PCP Internal Medicine; Referring Provider Hospitalist; Visit Provider Student in an Organized Health Care Education/Training Program
DX: R20.2 Paresthesia of skin (principal); I49.8 Other specified cardiac arrhythmias; I10 Essential (primary) hypertension; M19.90 Unspecified osteoarthritis, unspecified site; E11.9 Type 2 diabetes mellitus without complications; R20.0 Anesthesia of skin; E87.6 Hypokalemia; E03.9 Hypothyroidism, unspecified; I07.1 Rheumatic tricuspid insufficiency; R29.701 NIHSS score 1; Z79.899 Other long term (current) drug therapy; Z79.84 Long term (current) use of oral hypoglycemic drugs
CPT/HCPCS: 36415; 70450; 70544; 70549; 70551; 71045; 80048; 80061; 82962; 83036; 84484; 85025; 85610; 85730; 93005; 93225; 93226; 93306; 96372; 97161; 97166; 97802; 99218; 99285; A9575; A4216; G0378

== ENCOUNTER → 2019-07-21 13:50 | Outpatient (CLI) | payer MEDICARE, OTHER, SELFPAY ==
[2019-07-21 03:01] VITALS: BMI 35.7
== END ==
PROVIDERS: Family Provider Internal Medicine; PCP Internal Medicine; Referring Provider Internal Medicine Cardiovascular Disease; Visit Provider Student in an Organized Health Care Education/Training Program
DX: I49.8 Other specified cardiac arrhythmias (principal)
CPT/HCPCS: 93225; 93226